=== PATIENT | female | born 1995 | race Hispanic/Latino ===

== ENCOUNTER 2022-11-12 14:34 | Outpatient (CLI) | payer OTHER | END 2022-11-12 14:35 | disposition home or self-care (01) | LOC: CSHWCC 14:34 | PROVIDERS: ATTEND Nurse Practitioner Family | DX: L89.894 Pressure ulcer of other site, stage 4 (principal) | CPT/HCPCS: 11043; 99203; G0463 ==

== ENCOUNTER 2022-11-20 14:19 | Outpatient (CLI) | payer OTHER | END 2022-11-20 14:20 | disposition home or self-care (01) | LOC: CSHWCC 14:19 | PROVIDERS: ATTEND Nurse Practitioner Family | DX: L89.894 Pressure ulcer of other site, stage 4 (principal) | CPT/HCPCS: 97605; 99212; G0463 ==

== ENCOUNTER 2022-11-23 10:30 | Outpatient (CLI) | payer OTHER | END 2022-11-23 10:31 | disposition home or self-care (01) | LOC: CSHWCC 10:30 | PROVIDERS: ATTEND Nurse Practitioner Family | DX: L89.894 Pressure ulcer of other site, stage 4 (principal) ==

== ENCOUNTER 2022-11-26 15:13 | Outpatient (CLI) | payer OTHER | END 2022-11-26 15:14 | disposition home or self-care (01) | LOC: CSHWCC 15:13 | PROVIDERS: ATTEND Nurse Practitioner Family | DX: L89.894 Pressure ulcer of other site, stage 4 (principal) | CPT/HCPCS: 11043; 97605 ==

== ENCOUNTER 2022-11-29 15:14 | Outpatient (CLI) | payer OTHER | END 2022-11-29 15:15 | disposition home or self-care (01) | LOC: CSHWCC 15:14 | PROVIDERS: ATTEND Nurse Practitioner Family | DX: L89.894 Pressure ulcer of other site, stage 4 (principal) | CPT/HCPCS: 97605 ==

== ENCOUNTER 2022-12-03 15:15 | Outpatient (CLI) | payer OTHER | END 2022-12-03 15:16 | disposition home or self-care (01) | LOC: CSHWCC 15:15 | PROVIDERS: ATTEND Nurse Practitioner Family | DX: L89.894 Pressure ulcer of other site, stage 4 (principal) | CPT/HCPCS: 97605 ==

== ENCOUNTER 2022-12-06 15:07 | Outpatient (CLI) | payer OTHER | END 2022-12-06 15:08 | disposition home or self-care (01) | LOC: CSHWCC 15:07 | PROVIDERS: ATTEND Nurse Practitioner Family | DX: L89.894 Pressure ulcer of other site, stage 4 (principal) | CPT/HCPCS: 97605 ==

== ENCOUNTER 2022-12-10 14:27 | Outpatient (CLI) | payer OTHER | END 2022-12-10 14:28 | disposition home or self-care (01) | LOC: CSHWCC 14:27 | PROVIDERS: ATTEND Nurse Practitioner Family | DX: L89.894 Pressure ulcer of other site, stage 4 (principal) | CPT/HCPCS: 11043; 97605 ==

== ENCOUNTER 2022-12-13 15:08 | Outpatient (CLI) | payer OTHER | END 2022-12-13 15:09 | disposition home or self-care (01) | LOC: CSHWCC 15:08 | PROVIDERS: ATTEND Nurse Practitioner Family | DX: L89.894 Pressure ulcer of other site, stage 4 (principal) | CPT/HCPCS: 97605 ==

== ENCOUNTER 2022-12-24 09:08 | Outpatient (CLI) | payer OTHER | END 2022-12-24 09:09 | disposition home or self-care (01) | LOC: CSHWCC 09:08 | PROVIDERS: ATTEND Nurse Practitioner Family | DX: L89.894 Pressure ulcer of other site, stage 4 (principal) | CPT/HCPCS: 97605 ==

== ENCOUNTER 2022-12-28 08:05 | Outpatient (CLI) | payer OTHER | END 2022-12-28 08:06 | disposition home or self-care (01) | LOC: CSHWCC 08:05 | PROVIDERS: ATTEND Nurse Practitioner Family | DX: L89.894 Pressure ulcer of other site, stage 4 (principal) | CPT/HCPCS: 87070; 87077; 87186; 87205; 99213; G0463 ==

== ENCOUNTER 2022-12-31 12:56 | Outpatient (CLI) | payer OTHER | END 2022-12-31 12:57 | disposition home or self-care (01) | LOC: CSHWCC 12:56 | PROVIDERS: ATTEND Nurse Practitioner Family | DX: L89.894 Pressure ulcer of other site, stage 4 (principal) | CPT/HCPCS: 99212; G0463 ==

== ENCOUNTER → 2023-01-08 | Emergency (ER) | payer OTHER ==
[~2023-01-08] MED LIST: Cefepime 1 GM VIAL ONE; Piperacillin/Tazobactam 3.375 GM VIAL ONE; Vancomycin 1 GM VIAL ONE
[2023-01-08 21:40] LABS: #Basophils 0.1 10x3/uL (0.0-0.2); #Eosinphils 0.2 10x3/uL (0.0-0.5); #Monocytes 0.7 10x3/uL (0.0-1.1); #Neutrophils 8.4 10x3/uL (1.5-8.4); %Basophils 0.4 % (0.0-2.0); %Eosinophils 1.4 % (0.0-6.0); %Lymphocytes 24.6 % (18.0-47.0); %Monocytes 5.8 % (0.0-10.0); %Neutrophils 66.9 % (40.0-75.0); Hemoglobin 11.4 g/dL (12.0-15.5); Mean Corpuscular HGB CONC 30.5 g/dL (32.0-36.0); Mean Corpuscular Hemoglobin 22.8 pg (27.0-33.0); Mean Corpuscular Volume 74.7 fl (81.6-98.3); Mean Platelet Volume 9.8 fl (7.4-10.4); Platelet Count 683 10x3/uL (150-450); RBC Distribution Width 17.1 % (11.5-14.5); Red Blood Cell (RBC) Count 5.01 10x6/uL (3.90-5.03); White Blood Cell (WBC) Count 12.6 10x3/uL (3.5-10.5)
[2023-01-08 21:49] LABS: ALT (SGPT) 23 U/L (8-55); AST (SGOT) 15 U/L (5-34); Albumin 4.1 g/dL (3.5-5.0); Alkaline Phosphatase 77 U/L (40-110); Anion Gap 18 mmol/L (10-20); BUN (Urea Nitrogen) 8 mg/dL (7.0-18.7); Bilirubin, Total 0.1 mg/dL (0.2-1.2); CRP (Inflammatory) 4.87 mg/dL (= or < 0.5); Calc. Creatinine Clearance 0 mL/min (70-130); Calcium 9.4 mg/dL (7.8-10.44); Carbon Dioxide 23 mmol/L (22-29); Chloride 104 mmol/L (98-107); Estimated GFR 133; Glucose 98 mg/dL (70-105); Magnesium 2.2 mg/dL (1.6-2.6); Potassium 4.7 mmol/L (3.5-5.1); Protein, Total 9.1 g/dL (6.0-8.3); Sodium 140 mmol/L (136-145)
[2023-01-09 00:20] LABS: SARS-CoV-2 NAA Rapid Test Not Detected (NotDetected)
== END ==
LOC: CSHERS 19:09
DX: M86.18 Other acute osteomyelitis, other site (principal); Z20.822 Contact with and (suspected) exposure to COVID-19
CPT/HCPCS: 80053; 83735; 85025; 85652; 86140; 87040; 96365; 96367; 96375; J0692; J2543; J3370; U0002

== ENCOUNTER 2023-01-23 08:30 | Outpatient (CLI) | payer OTHER | END 2023-01-23 08:31 | disposition home or self-care (01) | LOC: CSHWCC 08:30 | PROVIDERS: ATTEND Nurse Practitioner Family | DX: L89.894 Pressure ulcer of other site, stage 4 (principal) | CPT/HCPCS: 99213; G0463 ==

== ENCOUNTER 2023-03-13 08:15 | Outpatient (CLI) | payer OTHER | END 2023-03-13 08:16 | disposition home or self-care (01) | LOC: CSHWCC 08:15 | PROVIDERS: ATTEND Nurse Practitioner Family | DX: M86.652 Other chronic osteomyelitis, left thigh (principal); L89.894 Pressure ulcer of other site, stage 4 | CPT/HCPCS: 99212; G0277; G0463 ==